=== PATIENT | female | born 1985 | race Caucasian/White ===

== ENCOUNTER 2021-08-10 08:21 | Observation (INO) | payer SELFPAY ==
--- OUTSIDE RECORDS SUMMARY | 2021-08-10 08:23 | XMS REPORT | Continuity of Care Document ---
:1985 Author Organization [facility] Address [address] [place] [address] Care Team Providers Name Role Phone BANDAR, Per Attending Clinician Unavailable Bandar JERONIMO, A Attending Clinician Payers Payer Name Policy Type Policy Number Effective Date Expiration Date S ource [employer] [id number] 2020 00:00:00 Problems Condition Condition Condition Status Onset Resolution Last Treating Co mments Source Name Details Category Date Date Treatment Clinician Date Generalize Generalize Disease Active U nivers d d 8-31 ity of abdominal [place] pain 00 [facility] [place] Anxiety Anxiety Disease Active Univers and and ity of depression depression [facility] Borderline Borderline Disease Active U nivers personalit personalit it y of y disorder y disorder [facility] Allergies, Adverse Reactions, Alerts Allergy Allergy Status Severity Reaction(s) Onset Inactive Treating Comm ents Source Name Type Date Date Clinician NO KNOWN Drug Active Univers ALLERGIE Class ity of S [facility] Social History Social Habit Start Date Stop Date Quantity Comments Source Sex Assigned At Universit y of [facility] Exposure to Not sure [place] of SARS-CoV-2 [facility] (event) Branch Tobacco use and 2020-03-29 2020-03-29 Never used Universit y of exposure 00:00:00 00:00:00 [facility] Alcohol intake 2020-03-29 2020-03-29 Current drinker Unive rsity of 00:00:00 00:00:00 of alcohol [facility] (finding) Branch History SDOH 2020-03-29 2020-03-29 1 University o f Alcohol Frequency 00:00:00 00:00:00 [place] [facility] History SDOH 2020-03-29 2020-03-29 99 University o f Alcohol Std 00:00:00 00:00:00 [place] [facility] History SDOH 2020-03-29 2020-03-29 1 University o f Alcohol Binge 00:00:00 00:00:00 [facility] Smoking Status Start Date Stop Date Source Never smoker [facility] Medications Ordered Filled Start Stop Current Ordering Indication Dosage Frequency Signature Comments Components Source Medication Medication Date Date Medication? Clinician (SIG) Name Name No known No Univers medications [facility] No known No Univers medications [facility] Vital Signs Vital Name Observation Time Observation Value Comments Source Systolic blood 2020-03-29 18:10:00 113 mm[Hg] [facility]iver [facility] of [facility] Diastolic blood 2020-03-29 18:10:00 66 mm[facility]Hg[facility] Heart rate 2020-03-29 18:10:00 86 /min [facility] Body temperature 2020-03-29 18:10:00 [facility] height 2020-03-29 18:10:00 176.5 cm [facility] Body weight 2020-03-29 18:10:00 64.048 kg [facility] BMI 2020-03-29 18:10:00 20.55 kg/m2 [facility] Procedures This patient has no known procedures. Encounters Start End Encounter Admission Attending Care Care Encounter Source Date/Time Date/Time Type Type Clinicians Facility Department ID 2020-04-04 2020-04-04 Outpatient R BANDAR [facility] [id number] Univers 15:00:00 15:00:00 WONDIFUL [id number] ity o f [facility] 2020-04-02 2020-04-02 Outpatient R [facility] [id number] Univers 08:45:00 08:45:00 [id number] ity [facility] 2020-04-02 2020-04-02 Outpatient R BANDAR [facility] [id number] Univers 08:45:00 08:45:00 WONDIFUL ity o f [facility] 2020-03-29 2020-03-29 Office Bandar PASEGUNDO [id number] Univers 13:03:08 13:43:25 Visit Wonlucas Gomez [id number] itnadeem [place] [id number] Dg castaneda Professio [id number] Ar dical [address] 2020-03-29 2020-03-29 Outpatient R BANDAR [facility] [id number] Univers 13:00:00 13:00:00 WONDIRICHARD hu [facility] Results This patient has no known results.
--- NOTE | 2021-08-10 09:07 | EDPHYS ---
Physician Documentation [facility] Name: Nimisha Sanford Age: 36 yrs Sex: Female : 1985 Arrival Date: 08/10/2021 Time: 08:23 Bed 3 Private MD: ED Physician Jona Powell HPI: 08/10 08:45 This 36 yrs old Female presents to ER via Ambulatory with complaints of Laceration To pm1 Arm. 08:45 The patient has a laceration related to: opening up bag for fire wood with knife pm1 resulting in laceration to right forearm occurred outdoors, The injury was Patient was drunk and smoking marijuana when she was trying to open up the bag of firewood with her knife. The laceration(s) is(are) located on the dorsal aspect of right forearm. Onset: The symptoms/episode began/occurred yesterday, sometime before midnight. Associated signs and symptoms: Pertinent negatives: inability to move right hand and fingers. Numbness and tingling. The patient has not experienced similar symptoms in the past. The patient has not recently seen a physician. Patient attempted to repair the laceration herself with super glue. 08:45 Patient also reports old laceration to left forearm. 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 - Social history:: Smoking status: Patient denies any tobacco usage or history of. ROS: 08:45 Constitutional: Negative for fever, chills, and weight loss, Cardiovascular: Negative pm1 for chest pain, palpitations, and edema, Respiratory: Negative for shortness of breath, cough, wheezing, and pleuritic chest pain, Abdomen/GI: Negative for abdominal pain, nausea, vomiting, diarrhea, and constipation. 08:45 Neuro: Negative for headache, weakness, numbness, tingling, and seizure. 08:45 MS/extremity: Positive for laceration, of the palmar aspect of left forearm and dorsal aspect of right forearm, Negative for decreased range of motion, deformity, paresthesias. 08:45 Skin: Positive for laceration(s), of the palmar aspect of left forearm and dorsal aspect of right forearm. 08:45 All other systems are negative. Exam: 08:45 Constitutional: This is a well developed, well nourished patient who is awake, alert, pm1 and in no acute distress. Head/Face: Normocephalic, atraumatic. 08:45 Cardiovascular: Exam negative for acute changes, Rate: normal, Rhythm: regular, Pulses: no pulse deficits are appreciated, Pulses are 2+ in right radial artery and left radial artery. 08:45 Respiratory: Exam negative for acute changes, respiratory distress, shortness of breath. 08:45 Skin: Appearance: normal except for affected area, injury, laceration(s), the wound is approximately 25 cm(s), with a depth of 2 cm(s), of the dorsal aspect of right forearm, the second wound is approximately 3 cm(s), with a depth of 1 cm(s), of the palmar aspect of left forearm. 08:45 Neuro: Exam negative for acute changes, Orientation: is normal, Mentation: is normal, Motor: is normal, moves all fours. Vital Signs: 08:38 BP 155 / 85; Pulse 92; Resp 20; Temp 98.7; Pulse Ox 100% ; Weight 65.77 kg; Height 5 spencer ft. 9 in. (175.26 cm); 08:38 Body Mass Index 21.41 (65.77 kg, 175.26 cm) spencer MDM: 08:44 Patient medically screened. pm1 09:03 Data reviewed: vital signs. Data interpreted: Pulse oximetry: on room air is 100 %. pm1 Interpretation: normal. 09:06 Counseling: I had a detailed discussion with the patient and/or guardian regarding: the pm1 historical points, exam findings, and any diagnostic results supporting the discharge/admit diagnosis, the need for further work-up and treatment in the hospital. 08/10 08:45 Order name: CBC with Diff; Complete Time: 09:24 pm1 08/10 08:45 Order name: BMP; Complete Time: 17:55 pm1 08/10 08:50 Order name: Forearm Right XRAY; Complete Time: 17:55 pm1 08/10 09:10 Order name: SARS-COV-2 RT PCR (Document "Date of Onset" if Symptomatic); Complete Time: eb 17:55 08/10 09:53 Order name: Urine Dipstick-Ancillary; Complete Time: 17:55 EDOH 08/10 08:45 Order name: IV Saline Lock; Complete Time: 09:10 pm1 08/10 08:45 Order name: NPO; Complete Time: 09:10 pm1 08/10 08:45 Order name: Urine Dipstick-Ancillary (obtain specimen) pm1 08/10 08:45 Order name: Urine Test (obtain specimen) pm1 Administered Medications: 09:10 Drug: Ancef (cefazolin) 1 grams Route: IVPB; Site: left antecubital; spencer 09:11 Follow up: Response: No adverse reaction; IV Status: Completed infusion spencer 09:10 Drug: NS 0.9% 1000 ml Route: IV; Rate: 125 ml/hr; Site: left antecubital; spencer 09:10 Drug: Tetanus-Diphtheria Toxoid Adult 0.5 ml {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 Lot #: [id number]. } Route: IM; Site: left deltoid; 09:11 Follow up: Response: No adverse reaction spencer 09:23 Follow up: Response: No adverse reaction spencer Disposition: 08/11 04:35 Co-signature as Attending Physician, Jona Powell MD I agree with the assessment and ton plan of care. Disposition Summary: 08/10/21 09:07 Hospitalization Ordered Hospitalization Status: Observation pm1 Provider: Johan Fink pm1 Location: Telemetry/MedSurg (observation) pm1 Condition: Stable pm1 Problem: new pm1 Symptoms: have improved pm1 Bed/Room Type: Standard pm1 Room Assignment: pm1 Diagnosis - Laceration without foreign body of right forearm pm1 - Laceration without foreign body of left forearm pm1 Forms: - Medication Reconciliation Form pm1 - SBAR form pm1 Signatures: Dispatcher [employer] Jona Trinidad MD MD cha Marinas, Patrick, NP BLASTING MACHINE OPERATOR pm1 Au-StagerMirta RN RN spencer
--- NOTE | 2021-08-10 09:07 | ER ---
Nurse's Notes [facility] Name: Nimisha Sanford Age: 36 yrs Sex: Female : 1985 Arrival Date: 08/10/2021 Time: 08:23 Bed 3 Private MD: Diagnosis: Laceration without foreign body of right forearm;Laceration without foreign body of left forearm Presentation: 08/10 08:38 Chief complaint: Patient states: right forearm laceration. pt attempted to cut open a spencer bag of firewood while intoxicated and cut open right forearm. pt super glued lac and ripped the super glue off. bleeding is managed with gauze and tim wrap. Coronavirus screen: Vaccine status: Patient reports being unvaccinated. Ebola Screen: Patient denies travel to an Ebola-affected area in the 21 days before illness onset. Complicating Factors: There are no complicating factors for this patient. Initial Sepsis Screen: Does the patient meet any 2 criteria? No. Patient's initial sepsis screen is negative. Does the patient have a suspected source of infection? No. Patient's initial sepsis screen is negative. Risk Assessment: Do you want to hurt yourself or someone else? Patient reports no desire to harm self or others. Onset of symptoms was August 09, 2021. 08:38 Method Of Arrival: Ambulatory spencer 08:38 Acuity: RACHELLE 2 spencer Triage Assessment: 08:45 General: Appears uncomfortable, Behavior is anxious. Pain: Complains of pain in dorsal spencer aspect of right forearm. Injury Description: Laceration sustained to dorsal aspect of right forearm. 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 - Social history:: Smoking status: Patient denies any tobacco usage or history of. Screenin:46 Abuse screen: Denies threats or abuse. Denies injuries from another. Nutritional spencer screening: No deficits noted. Tuberculosis screening: No symptoms or risk factors identified. Fall Risk None identified. Assessment: 08:46 General: Appears uncomfortable, Behavior is anxious. Musculoskeletal: Reports pain in spencer dorsal aspect of right forearm Pain is 10 out of 10 on a pain scale. Injury Description: Laceration is > 20 cm long, bleeding moderately. Vital Signs: 08:38 BP 155 / 85; Pulse 92; Resp 20; Temp 98.7; Pulse Ox 100% ; Weight 65.77 kg; Height 5 spencer ft. 9 in. (175.26 cm); 08:38 Body Mass Index 21.41 (65.77 kg, 175.26 cm) spencer ED Course: 08:23 Patient arrived in ED. mr 08:25 Dressings: 4X4s X 4; right arm + tim bandage. Wound care: to laceration located on mb4 right arm was dressed with 4X4s, Patient tolerated well. 08:40 Patient has correct armband on for positive identification. Placed in gown. Bed in low mb4 position. Call light in reach. Warm blanket given. Verbal reassurance given. 08:41 Frank Benson NP is PHCP. pm1 08:41 Jona Powell MD is Attending Physician. pm1 08:45 Triage completed. spencer 08:45 Arm band placed on left wrist. spencer 08:46 Patient has correct armband on for positive identification. spencer 08:46 No provider procedures requiring assistance completed. spencer 08:47 Pulse ox on. NIBP on. Assisted with dressing. mb4 09:06 Johan Fink MD is Hospitalizing Provider. pm1 09:10 BMP Sent. spencer 09:10 CBC with Diff Sent. spencer 09:17 Forearm Right XRAY In Process Unspecified. EDMS 09:18 COVID swab sent to lab. 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 Exp: spencer 12/21/2022. Lot #: [id number]. } Route: IM; Site: left deltoid; 09:11 Follow up: Response: No adverse reaction spencer 09:23 Follow up: Response: No adverse reaction spencer Outcome: : Decision to Hospitalize by Provider. pm1 10:20 Patient left the ED. spencer Signatures: Dispatcher [employer] Lisbeth Monroy Patrick, NP HAND CARVER pm1 Perri Castle mb4 Mirta Alicia RN RN tj
[2021-08-10 09:16] LABS: Absolute Lymphocytes (CBC) 1.2 K/uL (0.7-4.9); Hematocrit 41.9 % (36.0-45.0); Lymphocytes % 18.2 % (15.3-44.8); MPV 7.5 fL (7.6-11.3); RBC Red Blood Cell Count 4.45 M/uL (3.86-4.86)
[2021-08-10 09:33] LABS: Potassium 3.8 mmol/L (3.5-5.1)
--- NOTE | 2021-08-10 09:38 | RAD REPORT ---
EXAM DESCRIPTION: RAD - Forearm Right - 08/10/2021 9:17 am CLINICAL HISTORY: Laceration COMPARISON: No comparisons FINDINGS: No fracture is identified. There is no dislocation or periosteal reaction noted. Soft tissue wound is seen along the mid forearm. No retained foreign body identified. IMPRESSION: No foreign body identified.
[2021-08-10] MEDS ORDERED: propofoL 200 MG/20 ML VIAL IV ONE (09:49)
[2021-08-10] MEDS ORDERED: KETOROLAC 30 MG/ML INJ ONE (09:50)
[2021-08-10] MEDS ORDERED: ONDANSETRON 4 MG/2 ML VIAL ONE (09:50)
[2021-08-10] MEDS ORDERED: FENTANYL CITR 100 MCG/2 ML ONE (09:50)
[2021-08-10] MEDS ORDERED: LIDOCAINE 1% MPF 5 ML VIAL ONE (09:50)
[2021-08-10] MEDS ORDERED: MIDAZOLAM HCL 2 MG/2 ML INJ ONE (09:50)
[2021-08-10] MEDS ORDERED: dexAMETHasone 4 MG/ML VIAL ONE (09:50)
[2021-08-10 09:53] LABS: Urine Blood 1+ (Negative); Urine Glucose Negative (Negative); Urine Protein Trace (Negative); Urine Specific Gravity 1.025 (1.005-1.030); Urine pH 7.5 (5.0-7.0)
[2021-08-10 10:27] VITALS: O2SAT 100
[2021-08-10] MEDS ORDERED: Ringers Lactate 1,000 ML IV ONE (10:32)
[2021-08-10] MEDS ORDERED: Mastisol Adhesive Liq ONE ×2 (10:51→10:55)
[2021-08-10] MEDS ORDERED: CODEINE 30MG/APAP 300MG TAB ONE (10:59)
[2021-08-10] MEDS: MEPERIDINE HCL 25 MG/ML SYR ONE ×2 (11:14→11:22)
[2021-08-10] MEDS ORDERED: HYDROMORPHONE HCL 1 MG/ML INJ ONE (11:24)
[2021-08-10 12:24] VITALS: BP 136/84; TEMP 97.7
--- NOTE | 2021-08-10 13:41 | OP ---
Surgeon: Johan Fink MD Preoperative Diagnosis: Laceration to the right and left forearms. Postoperative Diagnosis: Lacerations of the right and left forearms. Procedure Performed: Debridement of skin and subcutaneous tissue, simple closure 3 cm, layered closu re right 15 cm. Anesthesia: General. Procedure In Detail: After satisfactory general anesthesia, the right and left arms were prepped wit h Betadine scrub, Betadine paint. Dry sterile drapes were applied in usual manner. Right arm was ap proached. Tenotomy scissors were used to debride the skin. Electrocautery was used for hemostasis. Wound was closed with 3-0 Vicryl subcu, 4-0 PDS running subcuticular followed by tincture of benzoin , Steri-Strips, Xeroform, Kerlix. Left side was closed with simple closure of 4-0 PDS running subcut icular. Dressed with Xeroform and Kerlix. The patient tolerated procedure well and returned to [facility]. EPI/AMY Voice ID: [id number] Report ID: [id number]
--- NOTE | 2021-08-10 20:44 | HP ---
Date of Admission: 08/10/2021 History Of Present Illness: The patient is a -sovn-qfu white female, right-hand dominant, who lacerated right and left forearms with knife approximately on midnight of . She wa s intoxicated. No medical problems appreciated. She has had cholecystectomy. Social History: She does not smoke, does drink. Allergies: NO ALLERGIES. Medications: She is on no medications. Physical Examination: She has a 1 cm laceration of the right forearm, volar surface, very superficial and down to the fasci a. No nerve artery tendon defect noticed. There is full range of motion. Sensation intact. A smal l laceration of approximately 3 cm in the left forearm. Assessment: Forearm laceration. Plan: Debridement and closure. ABRIL Voice ID: [id number]
== END 2021-08-10 12:24 | disposition home or self-care (01) ==
LOC: ER 08:21 → ERHOLD 09:25
PROVIDERS: ADMIT Specialist; ATTEND Specialist
PROC: 0JQG0ZZ Repair Right Lower Arm Subcutaneous Tissue and Fascia, Open Approach (ICD-10-PCS; 2021-08-10)
PROC: 0JQH0ZZ Repair Left Lower Arm Subcutaneous Tissue and Fascia, Open Approach (ICD-10-PCS; principal; 2021-08-10 10:00)
DX: S51.811A Laceration without foreign body of right forearm, initial encounter (principal); S51.812A Laceration without foreign body of left forearm, initial encounter; W26.0XXA Contact with knife, initial encounter; Z23 Encounter for immunization; Z20.822 Contact with and (suspected) exposure to COVID-19; Z90.49 Acquired absence of other specified parts of digestive tract
CPT/HCPCS: 36415; 80048; 81003; 85025; 90471; 96374; 99284; G0378; J1100; J1170; J2175; J2250; J2405; J2704; J3010; J7120; U0003